=== PATIENT | male | born 1980 | race Caucasian/White ===

== ENCOUNTER → 2016-11-10 | Outpatient (CLI) | payer OTHER ==
[~2016-11-10] MED LIST: ACETAMINOPHEN325 MG PO; GUAIFENESIN600 M1 PO; HYDROCODON-ACE1 EAC7 PO; LEVAQUIN PO; MOTRIN400 M1 PO; ONMEL200 MG PO; TESSALON PERLE100 M1 PO; ZANTAC150 MG PO
--- NOTE | ~2016-11-10 | CT2 ---
[facility]. [facility] A Service of [facility] & [facility] RADIOLOGY TEXT RESULTS PATIENT: ALEXANDER LEVI LOCATION: [facility] : 76 UNIT #: [id number] AGE: [address]: Elijah Norris MD SEX: M ORDER DR: [id number] [address] [id number] MR#: [id number] Acc #: [id number] NAME: ALEXANDER LEVI : 1980 SEX: M STUDY DATE/TIME: 11/10/2016 8:28 UNIT: [facility] ROOM: STUDY DESCRIPTION: CT Abd and Pelv W Cont Attending Physician: Elijah Norris M.D. Referring Physician: Elijah Norris M.D. Ordering Physician: Elijah Norris M.D. Primary Care Physician: Elijah Norris M.D. MEDICAL IMAGING REPORT This report is preliminary unless electronic signature is present. EXAM CT abdomen and pelvis 11/10/2016. INDICATIONS Left lower quadrant pain for 2 weeks. Gastroesophageal reflux disease. Left flank pain. TECHNIQUE Axial images were obtained through the abdomen and pelvis following oral and IV contrast administration. Multiplanar reformats were obtained. This CT exam was performed with one or more of the following radiation dose reduction techniques: automatic exposure control, adjustment of mA and/or kV according to patient size, and iterative reconstruction. COMPARISON Comparison is made with chest CT images from 02/04/2015 and 08/24/2013. No comparison abdomen or pelvis CT. FINDINGS Abdomen: Chronic patchy areas of alveolar opacity in both lung bases are not appreciably changed from 02/04/2015. Gallbladder is normal. No biliary obstruction. Solid organs are normal. No free fluid or adenopathy is seen. GI tract is normal. There are multiple radiopaque densities in the left side of the abdomen which were presumably surgically placed. These extend along the course of the vessel to the level of the left inguinal canal. Please correlate with history as to etiology of these small devices. Pelvis: The appendix is normal. The remainder of the GI tract is normal as well. Urinary bladder is normal. No free fluid. IMPRESSION [facility] A Service of [facility] & [facility] RADIOLOGY TEXT RESULTS PATIENT: ALEXANDER LEVI LOCATION: [facility] : 76 UNIT #: [id number] AGE: [address]: Elijah Norris MD SEX: M ORDER DR: 1. No clearly acute process in the abdomen or pelvis. 2. Normal GI tract, including the appendix. 3. Normal nonobstructed kidneys. 4. Multiple radiopaque densities extending in the left abdomen and pelvis along course of the psoas muscle into the left inguinal canal. Please correlate with surgical history. These are of unknown etiology. 5. Chronic infiltrates in both lung bases, stable since 02/04/2015. Dictated by... Eliceo Morales Jr., M.D. THIS IS AN ELECTRONICALLY VERIFIED REPORT Eliceo Morales Jr., M.D. at 11/10/2016 5:11 PM MICHELLE/evan TD: 11/10/2016 14:16 JOB #: [id number] MEDICAL IMAGING REPORT Page 1 of 1
== END | disposition home or self-care (01) ==
LOC: SCT 06:57
DX: K21.9 Gastro-esophageal reflux disease without esophagitis (principal); R10.9 Unspecified abdominal pain; R91.8 Other nonspecific abnormal finding of lung field
CPT/HCPCS: 74177; Q9967